=== PATIENT | female | born 2000 | race Caucasian/White ===

== ENCOUNTER 2023-10-25 10:10 | Emergency (ER) | payer BC ==
[~2023-10-25] VITALS: Ht 167.6 cm; Wt 77.1 kg
== END 2023-10-25 12:15 | disposition left against medical advice (07) ==
LOC: ER 10:10
DX: R10.13 Epigastric pain (principal); T50.995A Adverse effect of other drugs, medicaments and biological substances, initial encounter; R11.10 Vomiting, unspecified; R21 Rash and other nonspecific skin eruption